=== PATIENT | male | born 1990 | race Caucasian/White ===

== ENCOUNTER 2016-11-09 03:04 | Emergency (ER) | payer SELFPAY ==
[2016-11-09 04:31] VITALS: RESP 18; TEMP 98.5
--- NOTE | 2016-11-09 05:10 | PDOC ---
Psych/Suicidal/OD HPI - General Chief Complaint: Suicidal Ideation / Attempt Stated Complaint: 381 hold/solutions for life consult Date Seen by Provider: 11/09/16 Time Seen by Provider: 03:05 Source: POSITIVE: Patient, Police Exam Limitations: POSITIVE: No limitations Nurse's Notes Reviewed & Considered: Yes - History of Present Illness Initial Comments: The patient is a 26 year old male brought to the emergency room in police custody. Patient was visiting with his mother this evening and patient and his mother got into a heated exchange, apparantly regarding patients drug use. Patient then told mother his was going to kill himself and fled the residence. Mother police and patients was detained by the police and brought patient to the ER on a Form 381 for mental health evaluation. Patient self-inflicted some superficial lacerations to his left forearm yesterday. History of opiod and methamphetamine abuse. Patient very flippant and uncooperative in ER. In fact , he fled the ER after arrival, and police had to track patient down and return him to ER. Patient refuses any laboratory evaluation. Timing: REPORTS: Gradual Duration: Unknown Severity: Moderate Quality: REPORTS: Other (patient denies any pain anywhere) Intent: REPORTS: Other (patient denies any suicidal intent, but is not considered a reliable historian) Context: REPORTS: Other (drug abuse; conflict with his mother) Associated Symptoms: REPORTS: Depressed, Agitated, Hostile How did ingestion/attempt come to attention: as above Arrived By: REPORTS: Police Similar Symptoms Previously: Yes Recent Care Received: REPORTS: Denies Any Prior Injuries Related to Current Complaint?: Yes (self inflicted lacerations to left forearm) - Patient Home Medications Home Medications: Home Medications Medication Instructions Recorded Confirmed Ibuprofen 800 mg PO Q8H PRN 12/21/14 11/09/16 - Patient Allergies Allergies/Adverse Reactions: Allergies Allergy/AdvReac Type Severity Reaction Status Date / Time acetaminophen [From Tylenol] Allergy VOMITING Verified 11/09/16 03:24 Past Medical History - heen HEENT History: Denies History Cardiovascular History: Denies History Respiratory History: Denies History Gastrointestinal History: Denies History Genitourinary History: Denies History Endocrine History: Denies History Musculoskeletal History: Denies History Prosthesis or Implant: No Neurological History: Other (please comment) Additional Neurological History: CONCUSSION 2 YEARS AGO Blood Disorders: Denies History Psychiatric History: Denies History History of Sexually Transmitted Diseases: No Cancer History: Denies History In Past Year Been Physically Harmed or Verbally Threatened: No (Pt denies at this time) History of MDRO: No History of Other Communicable Diseases: No Tobacco Use: Current Every Day Smoker Alcohol Use: None How much alcohol do you normally drink a day?: Pt denies Substance Use Type: Cocaine, Heroin, Marijuana, Opiate Pain Medication, Methamphetamines Previous Surgical History: No Type / Date of Surgery: Pt denies Significant Family History: No pertinent family hx Past Medical History Reviewed: Reviewed - No Changes ROS - Limitations ROS Limitations: Uncooperative Constitution: REPORTS: Denies Symptoms Cardiovascular: REPORTS: Denies Cardiac Symptoms Respiratory: REPORTS: Denies Resp Symptoms Neurological: REPORTS: Denies Neuro Symptoms Gastrointestinal: REPORTS: Denies GI Symptoms Endocrine: REPORTS: Denies Symptoms Musculoskeletal: REPORTS: Denies MS Symptoms Genitourinary: REPORTS: Denies Symptoms Eyes: REPORTS: Denies Symptoms ENT: REPORTS: Denies Symptoms Skin: REPORTS: Other (several superficial self-inflicted lacerations volar aspect of left forearm; no sutures required) Lympathic: REPORTS: Denies Lympathic Symptoms Immunologic: POSITIVE: Denies Symptoms Psychiatric: POSITIVE: Other (as above) Psych/Suicidal/OD Exam - General Appearance General Appearance: POSITIVE: No Acute Distress, Alert - HEENT HEENT: POSITIVE: Head Inspection Nml, Eyes Inspection Nml, Ears Inspection Nml, Nose Inspection Nml, Oral/Dental Inspect. Nml, Pharynx Inspect. Nml, PERRL, EOMI - Pupil Size Pupil Size: 4 mm: Bilateral (PERRLA) - Neurological/Psychological Mental Status: POSITIVE: Hostile, Other (flippant; uncooperative). NEGATIVE: Slow Response to Command, No Response to Command Orientation: POSITIVE: Oriented x3, Uncooperative Cranial Nerves: POSITIVE: undercutter Intact as Tested Sensory/Motor: POSITIVE: Normal Motor Response, Normal Sensory Response, Normal Reflexes, Normal Gait When asked, pt ADMITS continued consideration of suicide:: No - Neck/Back Neck/Back: POSITIVE: Normal Inspection, Supple - Respiratory Respiratory: POSITIVE: No Respiratory Distress, Breath Sounds Normal - CVS Cardiovascular: POSITIVE: Regular Rate and Rhythm, Heart Sounds Normal, Equal Pulses, Strong Pulses Peripheral Pulses: Radial (R): 2+, Radial (L): 2+ - Abdomen Abdomen: Soft: (All Quadrants), Normal Bowel Sounds: (All Quadrants), Denies Tenderness: (All Quadrants), No Splenomegaly: (All Quadrants), No Hepatomegaly: (All Quadrants), No Guarding: (All Quadrants), No Rebound: (All Quadrants), No Palpable Pulse: (All Quadrants), No Palpabale Mass: (All Quadrants), No Distention: (All Quadrants), No Rigidity: (All Quadrants) - Skin Skin: POSITIVE: Normal For Race, Warm, Dry, Other (several superficial self- inflicted lacerations volar aspect left forearm. Cleansed and dressed in ER. Tetanus vaccination status currect. No sutures required.) - Extremities Extremity: Non-Tender: (All Extremities), Normal ROM: (All Extremities), Normal Inspection: (All Extremities) Images - Upper Extremities Upper Extremities: 1 - superficial self-inflicted lacerations Psych/Suicidal/OD Progress - Results Reviewed by me Lab Results:: Patient refused all laboratory testing - Patient's Progress Pain Medication Addressed: POSITIVE: No School/Work Release Addressed: POSITIVE: Not Applicable Re-Examine Time: 05:00 Re-Examine Comment: Patient evaluated by counsellor at [facility], who arrange for further evaluation and treatment. Medically stable. Status: POSITIVE: Unchanged, Re-Examined Poison Control Notification (name of person in comment): No Suicide Risk Assessment (SAD PERSONS): Yes - Medical Clearance for Psych Referral Toxic Causes: NEGATIVE: PCP, Amphetamines, Hallucinogens, Acetaminophen, ASA, ETOH, Other Toxic Ingestion, Other Infectious Causes: NEGATIVE: Meningitis, Encephalitis, Sepsis, Other Metabolic Causes: NEGATIVE: Thyroid, Hypoglycemia, Drug Withdrawal, Hypoxemia, Electrolytes, Other Neurological/Vascular Causes: NEGATIVE: CVA, TIA, Seizure, Trauma, Other Cleared medically for psychiatric referral: Yes - Consult Consult (If Yes, Name of Consulting MD & Time Called): Yes ([facility] [id number]) Consulting MD will see pt:: POSITIVE: In ED Counseled: POSITIVE: Patient, RE: DX, RE: Need for F/U Patient Care Time - Estimated PCT Patient Care Time (In Minutes): 40 Vital Signs - Recent Vital Signs Vital Signs: Vital Signs (Last 8 hours) Temp Pulse Resp BP Pulse Ox 11/09/16 03:05 98.5 F 96 18 138/79 96 - VS Reviewed Vital Signs Reviewed: Yes Discharge Clinical Impression: Dependent drug abuse, Suicidal ideation Discharge Disposition: Transferred to Psychiatric Facility Condition: Stable Date Decision to Transfer to Another Facility: 11/09/16 Time Decision to Transfer to Another Facility: 05:00
== END 2016-11-09 06:30 | disposition home or self-care (01) ==
LOC: ER 03:04
DX: R45.851 Suicidal ideations (principal); F19.20 Other psychoactive substance dependence, uncomplicated; S51.812A Laceration without foreign body of left forearm, initial encounter; X78.9XXA Intentional self-harm by unspecified sharp object, initial encounter
CPT/HCPCS: 99282

== ENCOUNTER 2016-11-28 17:28 | Emergency (ER) | payer SELFPAY ==
[2016-11-28] MEDS ORDERED: Sodium Chloride 0.9% 1,000 ML PRIMARY IV ONE (17:42)
[2016-11-28] MEDS ORDERED: ONDANSETRON 4 MG/2 ML VIAL IVP ONE (17:42)
[2016-11-28] MEDS ORDERED: KETOROLAC 30 MG/1 ML VIAL IVP ONE (17:42)
[2016-11-28 17:48] LABS: BILIRUBIN,URINE SMALL (NEG); CLARITY,URINE Slightly Clo (CLEAR); GLUCOSE, URINE (UA) NEGATIVE (NEG); LEUKOCYTE ESTERASE ,URINE NEGATIVE (NEG); NITRATE,URINE NEGATIVE (NEG); OCCULT BLOOD,URINE LARGE (NEG); PH,URINE 6.5 (5.0-8.5); PROTEIN,URINE NEGATIVE (NEG)
--- NOTE | 2016-11-28 17:48 | PDOC ---
Male Genitourinary Problem HPI - General Chief Complaint: Genitourinary Complaint Stated Complaint: THINK HAVE KIDNEY STONE Date Seen by Provider: 11/28/16 Time Seen by Provider: 17:43 Source: POSITIVE: Patient Exam Limitations: POSITIVE: No limitations Nurse's Notes Reviewed & Considered: Yes - History of Present Illness Initial Comments: Patient comes in today for evaluation of right flank pain. Patient was seen in [place] earlier this week with right flank pain diagnosed with a kidney stone. No imaging was obtained of his abdomen. He comes in now because of increasing right CVA pain radiating into his right lower quadrant. He also complaining of hematuria, dysuria, nausea, no vomiting or diarrhea. He denies any fever, chills, or sweats. Body Location Affected: REPORTS: Abdomen, Back Timing: REPORTS: Constant, Getting Worse Duration: <1 week Severity: Moderate Quality: REPORTS: "Pain", Sharpness, Stabbing, Throbbing Sexual History: REPORTS: Non-Contributory Associated Symptoms: REPORTS: Problems Urinating, Burning, Urgency, Pain, Blood in Urine Similar Symptoms Previously: Yes Recent Care Received: REPORTS: Recently Seen, Treated by MD Any Prior Injuries Related to Current Complaint?: No - Patient Home Medications Home Medications: Home Medications Ibuprofen 800 mg PO Q8H PRN 12/21/14 - Patient Allergies Allergies/Adverse Reactions: Allergies Allergy/AdvReac Type Severity Reaction Status Date / Time acetaminophen [From Tylenol] Allergy VOMITING Verified 11/09/16 03:24 Past Medical History - heen HEENT History: Denies History Cardiovascular History: Denies History Respiratory History: Denies History Gastrointestinal History: Denies History Genitourinary History: Denies History Endocrine History: Denies History Musculoskeletal History: Denies History Prosthesis or Implant: No Neurological History: Other (please comment) Additional Neurological History: CONCUSSION 2 YEARS AGO Blood Disorders: Denies History Psychiatric History: Denies History History of Sexually Transmitted Diseases: No Cancer History: Denies History History of MDRO: No History of Other Communicable Diseases: No Alcohol Use: None Substance Use Type: Cocaine, Heroin, Marijuana, Opiate Pain Medication, Methamphetamines Previous Surgical History: No Type / Date of Surgery: Pt denies Significant Family History: No pertinent family hx ROS - Limitations ROS Limitations: No Limitations Constitution: REPORTS: Denies Symptoms Cardiovascular: REPORTS: Denies Cardiac Symptoms Respiratory: REPORTS: Denies Resp Symptoms Neurological: REPORTS: Denies Neuro Symptoms Gastrointestinal: REPORTS: Abdominal Pain, Nausea Musculoskeletal: REPORTS: Back Pain Genitourinary: REPORTS: Dysuria, Hematuria Eyes: REPORTS: Denies Symptoms ENT: REPORTS: Denies Symptoms Skin: REPORTS: Denies Skin Symptoms Lympathic: REPORTS: Denies Lympathic Symptoms Immunologic: POSITIVE: Denies Symptoms Male Genitourinary Exam - General Appearance General Appearance: POSITIVE: Alert, Cooperative, No Acute Distress, No Evidence of Trauma - Abdomen Abdomen: Soft: (All Quadrants), Normal Bowel Sounds: (All Quadrants), Tenderness Noted: (RLQ) - HEENT HEENT: POSITIVE: Head Inspection Nml, Eyes Inspection Nml, Ears Inspection Nml, Nose Inspection Nml, PERRL, EOMI - Neck Neck: POSITIVE: Normal Inspection - Respiratory Respiratory: POSITIVE: No Respiratory Distress - Cardiovascular Cardiovascular: POSITIVE: Regular Rate and Rhythm, Heart Sounds Normal - Back Back: POSITIVE: CVA Tenderness (R) - Extremities Extremity: Non-Tender: (All Extremities), Normal ROM: (All Extremities), Normal Inspection: (All Extremities) - Neurological / Psychological Neurological: POSITIVE: Affect Apporpriate, Oriented X3 - Skin Skin: POSITIVE: Intact, Normal For Race, Warm, Dry, No Rash Male Genitourinary Progress - Results Reviewed by me Xrays/CTs/US Reviewed by me: Yes Discussed with Radiologist: Yes Lab Results Reviewed: Yes Lab Results: Laboratory Results 11/28/16 11/28/16 Range/Units 17:39 17:45 WBC 8.40 (4.8-10.8) 10^3/uL RBC 5.12 (4.70-6.10) 10^6/uL Hgb 14.9 (14.0-18.0) g/dL Hct 43.1 (42.0-52.0) % MCV 84.2 (80-90) FL MCH 29.1 (27-31) PG MCHC 34.6 (33-37) g/dL RDW Std Deviation 39.5 (39-50) fL RDW Coeff of Erick 13.0 (11.5-14.5) % Plt Count 250 (140-350) 10*3/uL MPV 9.9 (7.4-12.2) FL Immature Gran % (Auto) 0.1 (0-5) % Neut % (Auto) 64.9 (50-80) % Lymph % (Auto) 30.0 (10-50) % Weakley % (Auto) 4.0 L (5-15) % Eos % (Auto) 0.6 (0-8) % Baso % (Auto) 0.4 (0-1) % Immature Gran # (Auto) 0.01 10*3/UL Neut # (Auto) 5.45 10*3/UL Lymph # (Auto) 2.52 10*3/uL [place] # (Auto) 0.34 (0.3-0.8) 10*3/UL Eos # (Auto) 0.05 10*3/UL Baso # (Auto) 0.03 10*3/UL WBC Morphology Comment Normal morphology (NORM) Plt Morphology Comment Normal morphology (NORM) RBC Morph Comment Normal morphology (NORM) Sodium 141 (135-145) meq/L Potassium 3.7 L (3.8-5.2) meq/L Chloride 107 (98-112) meq/L Carbon Dioxide 25 (23-33) meq/L Anion Gap 9 (5-20) BUN 17 (7-22) mg/dL Creatinine 0.7 (0.70-1.50) mg/dL Estimated GFR > 60 (>60 ml/min/1.73m(2)) BUN/Creatinine Ratio 24.28 H (6-20) Glucose 82 (78-110) mg/dL Calculated Osmolality 292.0 (267-292) mOsm/kg Calcium 9.2 (8.7-10.7) mg/dL Magnesium 1.8 (1.6-2.4) mg/dL Total Bilirubin 0.4 (0.3-1.2) mg/dL AST 21 (21-57) IU/L ALT 28 (21-72) IU/L Alkaline Phosphatase 60 (38-126) IU/L Total Protein 7.6 (6.1-8.0) g/dL Albumin 4.3 (3.5-4.8) g/dL Globulin 3.3 (2.50-4.10) g/dL Albumin/Globulin Ratio 1.30 (1.3-2.0) mg/g Ur Collection Type Clean catch urine Urine Color Yellow Urine Clarity Slightly raheel (CLEAR) Urine pH 6.5 (5.0-8.5) Ur Specific [place] 1.020 (1.005-1.030) U Specif Grav (Refrac) 1.020 Urine Protein Negative (NEG) mg/dl Urine Glucose (UA) Negative (NEG) mg/dL Urine Ketones Trace (NEG) Urine Occult Blood Large H (NEG) Urine Nitrate Negative (NEG) Urine Bilirubin Small (NEG) Urine Urobilinogen 1.0 (0.2) EU/dL Ur Leukocyte Esterase Negative (NEG) Urine RBC >100 (NONE) /hpf Urine WBC 1-3 (NONE) Ur Squamous Epith Cells Rare (NONE) Ur Renal Epithelial Cell None (NONE) Urine Crystals None Urine Bacteria Rare (NONE) Urine Casts None (NONE) Urine Mucus None (NONE) Urine Trichomonas None (NONE) Urine Yeast None (NONE) Ur Culture Indicated? Culture not set Urine Opiates Screen Negative (NEG) Ur Buprenorphine Positive H (NEG) Ur Oxycodone Screen Negative (NEG) Urine Methadone Screen Negative (NEG) Ur Propoxyphene Screen Negative (NEG) Barbiturate Screen Negative (NEG) U Tricyclic Antidepress Negative (NEG) Phencyclidine Screen Negative (NEG) Amphetamines Screen Negative (NEG) U Methamphetamines Scrn Negative (NEG) Benzodiazepines Screen Negative (NEG) Cocaine Screen Negative (NEG) U Marijuana (THC) Screen Positive H (NEG) - Patient's Progress Pain Medication Addressed: POSITIVE: Yes Re-Examine Time:: 19:27 Status: POSITIVE: Improved MDM / ED Course: Patient was brought back to the main emergency room, examined, an IV established , blood drawn and sent to the lab for studies and urinalysis obtained, CT scan of his abdomen was obtained. Patient then received a liter of normal saline, Toradol, and Zofran. He continued to have complaints of pain however review of his laboratory findings showed that he was positive for buprenorphine, therefore , no narcotics were provided. Findings: Urine drug screen positive for marijuana and buprenorphine. Urinalysis reveals a contaminated pattern with blood present. CBC is within normal limits. CT scan shows no acute intra-abdominal abnormalities. Assessment: Flank pain with hematuria, probable passed kidney stone. Plan: Discharge home follow up with primary care physician continue with pain medication as prescribed. - Consult Counseled: POSITIVE: Patient, RE: Lab Results, RE: Radiology Results, RE: DX, RE : Need for F/U Patient Care Time - Estimated PCT Patient Care Time (In Minutes): 45 Vital Signs - Recent Vital Signs Vital Signs: Vital Signs (Last 8 hours) Temp Pulse Resp BP Pulse Ox 11/28/16 17:29 97.7 F 93 20 133/86 97 - VS Reviewed Vital Signs Reviewed: Yes Discharge Clinical Impression: Renal colic Discharge Disposition: Discharged to Home Condition: Fair Patient Instructions Given at Discharge: Kidney Stones (ED)
[2016-11-28 17:52] LABS: BASOPHILS # (AUTO) 0.03 10*3/UL; BASOPHILS % (AUTO) 0.4 % (0-1); EOSINOPHILS % (AUTO) 0.6 % (0-8); HEMATOCRIT 43.1 % (42.0-52.0); HEMOGLOBIN 14.9 g/dL (14.0-18.0); IMM GRAN % (AUTO) 0.1 % (0-5); IMM GRAN# (AUTO) 0.01 10*3/UL; LYMPHOCYTES # (AUTO) 2.52 10*3/uL; MEAN CORPUSCULAR HEMOGLOBIN 29.1 PG (27-31); MEAN CORPUSCULAR HGB CONC 34.6 g/dL (33-37); MEAN PLATELET VOLUME 9.9 FL (7.4-12.2); MONOCYTES # (AUTO) 0.34 10*3/UL (0.3-0.8); NEUTROPHILS # (AUTO) 5.45 10*3/UL; NEUTROPHILS % (AUTO) 64.9 % (50-80); RED BLOOD COUNT 5.12 10^6/uL (4.70-6.10)
[2016-11-28 17:53] LABS: PLATELET MORPHOLOGY COMMENT NORMAL MORPHOLOGY (NORM)
[2016-11-28 17:58] LABS: URINE SAMPLE TYPE CLEAN CATCH URINE
[2016-11-28 17:59] LABS: BACTERIA,URINE RARE; CANNABINOID SCREEN,URINE POSITIVE (NEG); COCAINE SCREEN NEGATIVE (NEG); METHAMPHETAMINES SCREEN,URINE NEGATIVE (NEG); RBC,URINE >100 /hpf; SQUAMOUS EPITHELIAL CELL,UR RARE; URINE SAMPLE TYPE CLEAN CATCH URINE
[2016-11-28 18:01] VITALS: RESP 20; TEMP 97.7
[2016-11-28 18:07] LABS: ASPARTATE AMINO TRANSFERASE 21 IU/L (21-57); BILIRUBIN,TOTAL 0.4 mg/dL (0.3-1.2); BLOOD UREA NITROGEN 17 mg/dL (7-22); BUN/CREATININE RATIO 24.28 (6-20); CALCIUM 9.2 mg/dL (8.7-10.7); CHLORIDE 107 meq/L (98-112); CREATININE 0.7 mg/dL (0.70-1.50); EST GLOMERULAR FILTRATION > 60 (>60 ml/min/1.73m(2)); GLUCOSE 82 mg/dL (78-110); MAGNESIUM 1.8 mg/dL (1.6-2.4); POTASSIUM 3.7 meq/L (3.8-5.2); SODIUM 141 meq/L (135-145); TOTAL PROTEIN 7.6 g/dL (6.1-8.0)
--- NOTE | 2016-11-28 19:18 | DI ---
CT ABD W/CN AND PELVIS W/CN,11/28/2016 5:42 PM: Clinical History: Right lower quadrant pain. Previous Exam: None at this facility. Findings: Multiple helically acquired CT images are obtained through the abdomen and pelvis following the intra venous administration of 75 cc of Isovue 300, and demonstrate a normal appendix. The urinary bladder is unremarkable. There is dried stool noted throughout the colon. There is no hydronephrosis nor nephrolithiasis. The liver, gallbladder, spleen and adrenals are unremarkable. There is no free fluid. There is no evidence of lymphadenopathy. Skeletal structures are unremarkable. Impression: Normal abdominal CT scan.
== END 2016-11-28 19:35 | disposition home or self-care (01) ==
LOC: ER 17:28
DX: N23 Unspecified renal colic (principal); R31.9 Hematuria, unspecified; R11.0 Nausea
CPT/HCPCS: 74177; 80053; 80305; 81001; 81003; 83735; 85025; 96361; 96374; 96375; 99283 ×2; J1885; J2405; J7030